=== PATIENT | female | born 1995 | race Hispanic/Latino ===

== ENCOUNTER 2016-06-07 18:17 | Outpatient (CLI) | payer MEDICAID | END 2016-06-07 19:21 | disposition home or self-care (01) | LOC: TRG 18:17 | PROVIDERS: ATTEND Obstetrics & Gynecology | DX: O77.9 Labor and delivery complicated by fetal stress, unspecified (principal); O47.9 False labor, unspecified; Z3A.00 Weeks of gestation of pregnancy not specified | CPT/HCPCS: 59025 ==